=== PATIENT | male | born 1970 | race Caucasian/White ===

== ENCOUNTER 2024-07-05 08:30 | Outpatient (CLI) | payer MEDICARE, OTHER, SELFPAY | END 2024-07-05 08:31 | disposition home or self-care (01) | LOC: AMB 07-08 09:52 | PROVIDERS: PCP Surgery; Visit Provider Internal Medicine | DX: S29.9XXA Unspecified injury of thorax, initial encounter (principal); V49.50XA Passenger injured in collision with unspecified motor vehicles in traffic accident, initial encounter; Y92.410 Unspecified street and highway as the place of occurrence of the external cause | CPT/HCPCS: A0425; A0433 ==

== ENCOUNTER 2024-07-05 09:12 | Emergency (ER) | payer MEDICARE, OTHER, SELFPAY ==
--- NOTE | 2024-07-05 | CRLHL7_ITS ---
For Patients: As a result of the Century Cures Act, medical imaging exams and procedure reports are released immediately into your electronic medical record. You may view this report before your referring provider. If you have questions, please contact your health care provider. Indication: Injury Technique: CT of the lumbosacral spine was performed. Imaging was acquired in the axial plane. Contrast is not administered. Sagittal and coronal reformatted imaging was performed. Imaging was acquired from the lower thoracic region through a part of the sacrum. Comparison: None Findings: There has been anterior fusion at L4 and L5 and posterior fusion at L4, L5 and S1. Associated hardware is intact. Alignment is normal. There are moderate degenerative changes diffusely. There is no lytic or blastic lesion and there is no acute fracture, dislocation or destructive process. Impression: Postoperative changes related to fusion. Degenerative changes. No evidence of acute fracture, dislocation or destructive process. Please note that all CT scans at this facility use dose modulation, iterative reconstruction, and/or weight-based dosing when appropriate to reduce radiation dose to as low as reasonably achievable. Dictated by Anish Jolley MD @ 07/05/2024 9:56:42 AM (Electronically Signed)
[2024-07-05 09:14] VITALS: BP 175/91; PULSE 56; RESP 18; TEMP 36.2; O2SAT 93; BMI 41.6
--- NOTE | 2024-07-05 09:23 | CRLHL7_ITS ---
For Patients: As a result of the Cures Act, medical imaging exams and procedure reports are released immediately into your electronic medical record. You may view this report before your referring provider. If you have questions, please contact your health care provider. INDICATION: Injury COMPARISON: None TECHNIQUE: CT examination of the cervical spine is performed without contrast using spiral technique. Thin axial, sagittal and coronal reconstructions were made. Please note that all CT scans at this facility use dose modulation, iterative reconstruction, and/or weight-based dosing when appropriate to reduce radiation dose to as low as reasonably achievable. FINDINGS: : There is straightening which is probably due to muscle spasm or positioning. There are moderate degenerative changes diffusely. There is no acute fracture, dislocation or destructive process. There has been anterior cervical fusion at C6 and C7. There is no acute fracture, dislocation or destructive process. IMPRESSION: Straightening. Degenerative changes. Status post anterior cervical fusion. No acute fracture, dislocation or destructive process. Please note that all CT scans at this facility use dose modulation, iterative reconstruction, and/or weight-based dosing when appropriate to reduce radiation dose to as low as reasonably achievable. Dictated by Anish Jolley MD @ 07/05/2024 9:52:49 AM (Electronically Signed)
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
[2024-07-05 10:07] VITALS: PULSE 52; O2SAT 91
--- OUTSIDE RECORDS SUMMARY | 2024-07-05 10:07 | XMS_ITS | Clinical Summary ---
Author Organization [facility] Address [address] [place] [id number] Care Team Providers Care Auto Inspection Specialist Name Role Phone Addy Duffy MD Primary Care Provider [phone] Allergies No known active allergies Medications polyethylene glycoL (MIRALAX) 17 gram/dose powderIndicatio ns:Constipation , unspecified constipation type TAKE 17 GRAM MIXED WITH 8 OZ. WATER,JUICE,S VINCNEZO,COFFEE OR TEA BY ORAL ROUTE TWO TIMES A DAY . 3 jar 3 07/23/19 16 Active SUBOXONE film sublingual 0 04/13/20 18 Active NARCAN 4 mg/actuation spry 0 03/13/20 18 Active FLECTOR 1.3 % patch APPLY 1 patch to affected area NEEDED FOR acute pain 0 10/02/19 19 Active BiPapIndication s:Obstructive sleep apnea syndrome,Centra l sleep apnea comorbid with prescribed opioid use, moderate BiPAP machine for home use at pressure:16/1 2 cm/H2O, Heated humidifier x 1 every 5 years, Humidifier chamber x 1 every 6 months, Full face mask with cushion x 1 every 3 months, Full face cushion 1 every month, 1 headgear 1 every 6 month, Heated tubing x 1 every 3 months, Filters: Disposable filter x 2 a month, non-disposabl e filters x1 every 6 months; chinstrap 1 every 6 months Length of Need: 99 months, Frequency of use: Daily 1 Device 11 06/10/19 20 Active gabapentin (NEURONTIN) 300 mg capsule TAKE ONE CAPSULE BY MOUTH TWICE DAILY NEEDED for nerve pain. 08/08/19 22 Active diclofenac topical (VOLTAREN) 1 % gelIndications: Chronic right shoulder pain Apply 2 g topically to affected area(s) four times daily. 100 g 1 01/14/20 23 Active methylPREDNISol one (Medrol, Chema,) 4 mg tabletIndicatio ns:Bulging lumbar disc,Lumbar radicular pain Take by mouth as instructed per packaging. 21 Tablet 11/20/19 24 Active baclofen 20 mg tabletIndicatio ns:Lumbar radicular pain TAKE 1 TABLET BY MOUTH 2-3 TIMES DAILY NEEDED 180 Tablet 3 04/22/19 25 Active sertraline (ZOLOFT) 50 mg tabletIndicatio ns:Anxiety Take 1 Tablet (50 mg) by mouth once daily. 90 Tablet 3 06/06/19 25 Active lisinopril-hydr ochlorothiazide (10-12.5 mg) tablet (PRINZIDE; ZESTORETIC)Tabatha cations:Essenti al hypertension Take 1 Tablet by mouth once daily. 90 Tablet 3 06/06/19 25 Active sennosides-docu sate (Senexon-S) (8.6-50 mg) tabletIndicatio ns:Constipation due to pain medication TAKE TWO TABLETS BY MOUTH TWICE DAILY 360 Tablet 3 06/14/19 25 Active naproxen (NAPROSYN) 500 mg tabletIndicatio ns:Bulging lumbar disc TAKE ONE TABLET BY MOUTH TWICE A DAY WITH MEALS 180 Tablet 1 06/14/19 25 Active sennosides-docu sate (Senexon-S) (8.6-50 mg) tabletIndicatio ns:Constipation due to pain medication TAKE TWO TABLETS BY MOUTH TWICE DAILY 240 Tablet 04/01/20 24 025 Discontinued lisinopril-hydr ochlorothiazide (10-12.5 mg) tablet (PRINZIDE; ZESTORETIC)Tabatha cations:Essenti al hypertension TAKE ONE TABLET BY MOUTH ONE TIME DAILY 90 Tablet 04/02/20 24 025 Discontinued(R eorder (E-cancel not sent)) naproxen (NAPROSYN) 500 mg tabletIndicatio ns:Bulging lumbar disc TAKE ONE TABLET BY MOUTH TWICE A DAY WITH MEALS 60 Tablet 05/12/19 25 025 Discontinued doxazosin (CARDURA) 2 mg tabletIndicatio ns:Essential hypertension,In complete bladder emptying TAKE ONE TABLET BY MOUTH AT BEDTIME 30 Tablet 05/20/19 25 025 Discontinued(* Med ineffective) sertraline (ZOLOFT) 50 mg tabletIndicatio ns:Anxiety TAKE ONE TABLET BY MOUTH ONE TIME DAILY 30 Tablet 05/20/19 25 025 Discontinued(R eorder (E-cancel not sent)) Active Problems Patient Care Coordination No te Formatting of this note migh t be different from the original. Having pain weill controlled and being able to attend functions is what matters most to Pradip. Pradip would like his care team to know he has supportive significant others . What are Pradip's challenges, stressors, or barriers? Pain, coping with insurance agencies Problem Noted Date Diagnosed Date Chronic pain syndrome 06/10/2019 Anxiety disorder due to medical condition 2017 Lumbar radicular pain 09/25/2015 Bulging of L3-4 disc 08/26/2015 SHANTHI 09/17/2007 AHI-100 06/01/2015 Morbid obesity with BMI of 40.0-44.9, adult 11/17 Mixed hyperlipidemia 08/31/2011 Degeneration of lumbar or lumbosacral interverte bral disc 06/12/2008 L4-Sacrum fusion after disk injuries 06/12/2008 Unspecified essential hypertension 08/20/2007 TENDINITIS, CALCIFYING, SHOULDER Resolved Problems Problem Noted Date Diagnosed Date Resolved Date Urinary frequency 06/10/2015 03/02/2017 Obese 12/16/2011 12/16/2011 Pain medication agreement si gned and scanned 09/05/12 06/24/2011 05/30/2018 Overview (05/30/2018): Prescriber: Pain clinic - Secondary: Dr. Davide Celis, Addy Duffy Ok to fill at same amount/dose/frequency in my absence. Controlled substance agreement: 09/02/11 [employer] query on 03/01/18 was acceptable. Last UDS on 11/29/17 Backache, unspecified 01/25/20052008 SLEEP APNEA 09/17/2007 AHI-100 03/02/2017 Overview (03/02/2017): Uses CPAP Encounters Date Type Department Care Team Description 07/05/2024 Hospital Encounter [facility] [address] [place] [address] Aydee Penaloza MD 06/12/2024 Refill [facility] [address] [facility] [place] [address] Addy Duffy MD Refill Request (Naproxen) 06/12/2024 Refill [facility] [address] [place] [address] Davide Celis MD Refill Request (Senexon-s) 06/06/2024 11:55 AM INDEPENDENT FILM MAKER Office Visit [facility] [address] [place] [address] Addy Duffy MD Medicare ANNUAL (subsequent) Visit (53 yr old male) 06/06/2024 Travel 05/27/2024 Telephone [facility] [address] [facility] [address] [place] [address] Aydee Penaloza MD Appointment 05/22/2024 1:00 PM INDEPENDENT FILM MAKER Office Visit [facility] [address] [place] [address] Davide Celis MD [facility] (W/C follow up back injury DOI: 12/21/2003//) 05/22/2024 Travel 05/19/2024 Refill [facility] [address] [place] [address] Addy Duffy MD Refill Request (Doxazosin, Sertraline) 05/10/2024 Refill [facility] [address] [place] [address] Addy Duffy MD Refill Request (Naproxen) 04/18/2024 Refill [facility] [address] [place] [address] Addy Duffy MD Refill Request (Sertraline) 04/18/2024 Refill [facility] [address] [place] [address] Davide Celis MD Refill Request (Baclofen) from Last 3 Months Immunizations Immunization Administration Dates Next Due Influenza, IIV3 (Age >=3 years) 02/05/2013,12/19,12/20/2011 Influenza, IIV4 01/13/2023, 0,01/16/2017,2015 Pneumococcal Conj 20-valent (Prevnar 20) 06/06/2024 Pneumococcal Poly,23-Valent (Pneumovax) 12/20/2011 Td (Age >=7 Years) 07/28/1999 Tdap 11/04/2009 Family History Medical History Relation Name Comments Good Health Father Diabetes Mother Relation Name Status Comments Father Mother Social History Tobacco Use Types Packs/Day Years Used Date Smoking Tobacco: Former Cigarettes Q uit: 02/07/2010 Smokeless Tobacco: Former Quit: 04/17/1986 Tobacco Cessation:Counseling Given: Yes Alcohol Use Standard Drinks/Week Comments Yes 0 (1 standard drink = 0.6 oz pur e alcohol) a couple every few months PHQ-2 Answer Date Recorded PHQ-2 TOTAL SCORE 0 06/06/2024 Social Connections Answer Date Recorded Do you often feel lonely or isolated from those around you? 0 06/06/2024 Financial Resource Strain Answer Date R ecorded Difficulty of Paying Living Expenses 1 06/06/2024 Difficulty of Paying Living Expenses 2 06/06/2024 Food Insecurity Answer Date Recorded Do you worry your food will run out before you are able to buy more? 2 06/06/2024 Transportation Needs Answer Date Record ed Does lack of transportation keep you from medica l appointments? 1 06/06/2024 Does lack of transportation keep you from work, meetings or getting things that you need? 1 06/06/2024 Housing Stability Answer Date Recorded What is your housing situation today? 1 06/06/2024 Utilities Answer Date Recorded Do you have trouble paying f or utilities (for example, heat, electricity, water, phone)? 2 06/06/2024 Sex and Gender Information Value Date Recorded Sex Assigned at Not on file Legal Sex Male 6:19 AM INDEPENDENT FILM MAKER Gender Identity Not on file Sexual Orientation Not on file Obstetrics History Last Filed Vital Signs Vital Sign Reading Time Taken Comments Blood Pressure 131/83 06/06/2024 12:07 PM INDEPENDENT FILM MAKER Pulse 61 06/06/2024 12:07 PM INDEPENDENT FILM MAKER Temperature 37 C (98.6 F) 05/22/2024 1:10 PM INDEPENDENT FILM MAKER Respiratory Rate 16 05/10/2023 10:0 0 AM INDEPENDENT FILM MAKER Oxygen Saturation 96% 06/06/2024 12: 07 PM INDEPENDENT FILM MAKER Inhaled Oxygen Concentration - - Weight 148.4 kg (327 lb 3.2 oz) 025 12:07 PM INDEPENDENT FILM MAKER Height 183.5 cm (6' 0.24) 06/06/2024 1 2:07 PM INDEPENDENT FILM MAKER Body Mass Index 44.08 06/06/2024 12:07 PM INDEPENDENT FILM MAKER Plan of Treatment Upcoming Encounters Date Type Department Care Team (Late st Contact Info) Description 11/25/2024 1:00 PM CDT Office Visit [facility] [address] [place] [address] Davide Celis MD [address] [place] [address] Health Maintenance Due Date Last Done Comments Zoster (shingles) series for age 50+ (1 of 2) 2018 Tetanus booster 11/05/2019 11/04/2009, 07/28/1999 COVID-19 vaccine series ( season) 2023 Influenza Vaccine (#1) 2023 , 03/16/2020, 01/16/2017, Additional history exists BMI (ht and wt on same day) for age 18+ 06/06/2025 06/06/2024, 01/13/2023, 08/09/2021, Additional history exists Depression screening for age 12+ 06/06/2025 06/06/2024, 05/27/2024, 01/13/2023, Additional history exists Colonoscopy through age 75 09/02/2026 09/02/2021 Lipids for age 45-75 01/14/2028 01/13/2023, 08/09/2021, 01/21/2020, Additional history exists Tdap Completed 11/04/2009 HIV for age 15-65 Completed 01/13/2023 Hepatitis C screening for ag e 18-79 Completed 01/13/2023 Pneumococcal series for age 50+ Completed , 12/20/2011 Medical Devices Implanted Type Area Manager Engine Device Identifier Shelf Expiration Date Model / Serial / Lot Chips Canclls 1.0-9.5mm 30cc Aseptic Freeze Dried Strl [[id number]] [[id number]][ Implanted:Qty: 1 on 01/25/2005 at [facility] Explanted:at [facility] (Quantity not on file) Bone Implants N/A: Lumbar Vertebrae Allosource 09/16/2009 [id number] # / [id number] Description:exp 09/16/2009 Crushed Canclls [id number] ic Freeze Dried [[id number]] [[id number]][ Implanted:Qty: 1 on 01/25/2005 at [facility] Explanted:at [facility] (Quantity not on file) Bone Implants N/A: Lumbar Vertebrae Allosource 12/12/2008 [id number] # / [id number] Description:Exp-12/12/2008 Plate Cerv Ant 25mm [place] Vision 976-125 - [id number] Implanted:Qty: 1 on 01/17/2006 at [facility] Spine Implants Spine SOFAMOR DANEK 976-125# / / Screw Self Tap 4.0x14mm Fixed Ang - [id number] Implanted:Qty: 4 on 01/17/2006 at [facility] Spine Implants Spine Medtronic [id number]# / / [id number] - [id number] Implanted:Qty: 1 on 01/25/2005 at [facility] N/A: Lumbar Vertebrae SOFAMOR DANEK [id number]# / / [id number] Description:Med BMP exp 2006 Bone Precision 16x26 Fz - [id number] Implanted:Qty: 1 on 01/25/2005 at [facility] Explanted:at [facility] (Quantity not on file) N/A: Lumbar Vertebrae [employer] 12/16/2009 [id number]# / [id number] / [id number] 1 Description:Exp 12/16/2009 Bone Precision 14x26 Fz - [id number] Implanted:Qty: 1 on 01/25/2005 at [facility] Explanted:at [facility] (Quantity not on file) N/A: Lumbar Vertebrae [employer] 10/26/2009 [id number]# / [id number] / Description:Exp 10/26/2009 [id number] - [id number] Implanted:Qty: 3 on 01/25/2005 at [facility] N/A: Lumbar Vertebrae SOFAMOR DANEK [id number] # / / 0 [id number] - [id number] Implanted:Qty: 3 on 01/25/2005 at [facility] N/A: Lumbar Vertebrae SOFAMOR DANEK [id number] # / / 0 [id number]# - [id number] Implanted:Qty: 1 on 01/25/2005 at [facility] N/A: Lumbar Vertebrae SOFAMOR DANEK [id number]# / / 0 [id number]# - [id number] Implanted:Qty: 1 on 01/25/2005 at [facility] N/A: Lumbar Vertebrae SOFAMOR DANEK [id number]# / / [id number]# - [id number] Implanted:Qty: 6 on 01/25/2005 at [facility] N/A: Lumbar Vertebrae SOFAMOR DANEK [id number]# / / [id number] 77putty Dbx 1cc [id number] [[id number]] Implanted:Qty: 1 on 01/17/2006 at [facility] Explanted:at [facility] (Quantity not on file) Spine Musculoskeletal Transplant 10/08/2007 [id number]# / [id number] / [id number] [id number] Sanchez/Canclls 8mm P Lordotic Acf Fd [id number] [[id number]] Implanted:Qty: 1 on 01/17/2006 at [facility] Explanted:at [facility] (Quantity not on file) Spine Musculoskeletal Transplant 11/21/2008 [id number]# / [id number] / Procedures Procedure Name Priority Date/Time Associated Diagnosis Comments [employer] [facility] IMAGE STORAGE Routine 07/04/2024 9:43 AM CDT PSA TOTAL Routine 06/06/2024 1:14 PM INDEPENDENT FILM MAKER Screening for prostate cancer BASIC METABOLIC PANEL Routine 05/22/2024 1:55 PM INDEPENDENT FILM MAKER Therapeutic drug monitoring HEPATIC FUNCTION PANEL Routine 05/22/2024 1:55 PM INDEPENDENT FILM MAKER Therapeutic drug monitoring ANTI HIV 1/2 Routine 01/13/2023 2:11 PM CDT Screening for HIV (human immunodeficiency virus) ANTI HCV Routine 01/13/2023 2:11 PM CDT Need for hepatitis C screening test LIPID PANEL Routine 01/13/2023 2:11 PM CDT Mixed hyperlipidemia COLONOSCOPY SCREENING Routine 09/02/2021 12:00 AM CDT Screening for colon cancer from Last 3 Months or Most Recently Relevant to Health Maintenance Results * PSA TOTAL (DIAG OR SCREEN) (06/06/2024 1:14 PM INDEPENDENT FILM MAKER) [facility] PSA, TOTAL 0.42 < OR = 4.00 ng/mL [facility]ier[facility] Comment: The total PSA value from this assay system is standardized against the WHO standard. The test result will be approximately 20% lower when compared to the equimolar-standardized total PSA (Kristen Ravenel). Comparison of serial PSA results should be interpreted with this fact in mind. This test was performed using the Siemens chemiluminescent method. Values obtained from different assay methods cannot be used interchangeably. PSA levels, regardless of value, should not be interpreted as absolute evidence of the presence or absence of disease. Blood BLOOD SPECIMEN / Unknown 06/06/2024 1:14 PM INDEPENDENT FILM MAKER 06/06/2024 1:30 PM INDEPENDENT FILM MAKER Narrative [facility] - 06/07/2024 5:48 AM INDEPENDENT FILM MAKER PATIENT REFUSED SOME TESTING; PATIENT ENCOURAGED TO RETURN. us Addy Duffy MD CHEMISTRY Final Resu lt [facility]Open [facility] [address] [place] [address], [facility] [address] [place] [address] * HEPATIC FUNCTION PANEL (05/22/2024 1:55 PM INDEPENDENT FILM MAKER) Pathologist [facility] PROTEIN, TOTAL 6.9 6.1 - 8.1 g/dL [facility] ALBUMIN 4.3 3.6 - 5.1 g/dL [facility] GLOBULIN 2.6 1.9 - 3.7 g/dL (calc) [facility] ALBUMIN/GLOBULIN RATIO 1.7 1.0 - 2.5 (calc) [facility] BILIRUBIN, TOTAL 0.4 0.2 - 1.2 mg/dL [facility] BILIRUBIN, DIRECT 0.1 < OR = 0.2 mg/dL [facility] BILIRUBIN, INDIRECT 0.3 0.2 - 1.2 mg/dL (calc) [facility] ALKALINE PHOSPHATASE 61 35 - 144 U/L [facility] AST 15 10 - 35 U/L [facility] ALT 16 9 - 46 U/L [facility] Blood BLOOD SPECIMEN / Unknown 05/22/2024 1:55 PM INDEPENDENT FILM MAKER 05/22/2024 1:55 PM INDEPENDENT FILM MAKER us Davide Celis MD CHEMISTRY Final Resu lt panOpen [facility] [address] [place] [address], [facility] [address] [place] [address] * (ABNORMAL) BASIC METABOLIC PANEL (05/22/2024 1:55 PM INDEPENDENT FILM MAKER) [facility] GLUCOSE 93 65 - 99 mg/dL [facility] Comment: Fasting reference interval UREA NITROGEN (BUN) 20 7 - 25 mg/dL [facility] CREATININE 0.75 0.70 - 1.30 mg/dL [facility] EGFR 107 > OR = 60 mL/min/1. 73m2 [facility] BUN/CREATININE RATIO SEE NOTE: 6 (calc) [facility] Comment: Not Reported: BUN and Creatinine are within reference range. SODIUM 140 135 - 146 mmol/L [facility] POTASSIUM 4.5 3.5 - 5.3 mmol/L [facility] CHLORIDE 103 98 - 110 mmol/L [facility] CARBON DIOXIDE 32 20 - 32 mmol/L [facility] ELECTROLYTE BALANCE 5(L) 7 - 17 mmol/L (calc) [facility] CALCIUM 9.3 8.6 - 10.3 mg/dL [facility] Blood BLOOD SPECIMEN / Unknown 05/22/2024 1:55 PM INDEPENDENT FILM MAKER 05/22/2024 1:55 PM INDEPENDENT FILM MAKER us Davide Celis MD CHEMISTRY Final Resu lt Performing Organization Address [facility]/ZIP Co de Phone Number [facility]Open [facility] [address] [place] [address], [facility] [address] [place] [address] * ANTI HCV (01/13/2023 2:11 PM CDT) HEPATITIS C ANTIBODY Non-Reacti ve Non-React miranda 01/13/2023 9:37 PM CDT [facility] Comment:Please note, per www .CDC.gov: If a patient is known to be at high risk of HCV infection, or is symptomatic, and the physician's suspicion of HCV infection is high, HCV RNA testing is often employed and is of diagnostic value, even after an initial negative anti-HCV test result. Blood BLOOD SPECIMEN / Unknown Venipuncture / Unknown 01/13/2023 2:11 PM CDT 01/13/2023 2:11 PM CDT us Addy Duffy MD SEND OUTS Final Resu lt Performing Organization Address [facility]/ZIP Co de Phone Number [facility] [address] [place] [address], [place] * ANTI HIV 1/2 [33956.0] (01/13/2023 2:11 PM CDT) HIV-1/HIV-2 SCREEN Non-Reacti ve Non-Reacti ve 01/13/2023 9:30 PM CDT [facility] Comment:HIV-1 p24 and HIV-1/ HIV-2 Ab Not Detected. Blood BLOOD SPECIMEN / Unknown Venipuncture / Unknown 01/13/2023 2:11 PM CDT 01/13/2023 2:11 PM CDT us Addy Duffy MD SEND OUTS Final Resu lt [facility] [address] [place] [address], * LIPID PANEL (01/13/2023 2:11 PM CDT) CHOLESTEROL,TOTAL 173 100 - 199 mg/dL 01/13/2023 9:42 PM CDT [facility] Comment: Cholesterol, Total Reference Ranges Desirable <200 mg/dL Borderline 200-239 mg/dL High >=240 mg/dL TRIGLYCERIDES 108 <150 mg/dL 01/13/2023 9:42 PM CDT [facility] HDL CHOLESTEROL 60 >40 mg/dL 9:42 PM CDT [facility] NON-HDL CHOLESTEROL 113 <145 mg/dl 01/13/2023 9:42 PM CDT [facility] CHOL/HDL RATIO 2.88 <4.50 01/13/2023 9:42 PM CDT [facility] LDL CHOLESTEROL 91 <=130 mg/dL 01/13/2023 9:42 PM CDT [facility] VLDL CHOLESTEROL 22 <=30 mg/dL 01/13/2023 9:42 PM CDT [facility] PROVIDER ORDERED STATUS RANDOM 01/13/2023 9:42 PM CDT [facility] Blood BLOOD SPECIMEN / Unknown Venipuncture / Unknown 01/13/2023 2:11 PM CDT 01/13/2023 2:11 PM CDT Addy Duffy MD CHEMISTRY Final Resu lt [facility] [address] [place] [address], * COLONOSCOPY SCREENING [[id number]] (09/02/2021 12:00 AM CDT) Addy Duffy MD GI PROCEDURE ORD Final Res ult from Last 3 Months or Most Recently Relevant to Health [place] [address] MEDICARE PB ONLY [place] [id number] MEDICARE [place] ONLY [place] [id number] [place] [id number] [place] Advance Directives Documents on File Type Date Recorded Patient Transit Specialist Expl anation Healthcare Directive 02/01/2005 * Full Code (Latest Code Status on File) Date Activated Date Inactivated Comments 01/17/2006 6:26 PM 01/18/2006 8:29 PM * Full Code Date Activated Date Inactivated Comments 01/17/2006 11:53 AM 01/17/2006 6:26 PM * Full Code Date Activated Date Inactivated Comments 01/25/2005 9:01 PM 01/30/2005 7:53 PM * Full Code Date Activated Date Inactivated Comments 01/25/2005 8:20 AM 01/25/2005 9:01 PM Care Teams Auto Inspection Specialist Relationship Specialty Start Date End Date Addy Duffy MD [address] [facility] [facility] [address] PCP - General Family Practice 04/04/14
--- OUTSIDE RECORDS SUMMARY | 2024-07-05 10:07 | XMS_ITS | Continuity of Care Document ---
Author Organization [facility] Address [address] [place] [address] [address] [place] [address] Phone Care Team Providers Care Customer Engagement Representative Name Role Phone Edna CIFUENTES, Amijoshua Unavailable Unavailable Medications Medication Instructions Dosage Effective Dates (start - stop) Status Comments Vistaril 25 mg Cap 1-2 tabs q 6 hours prn 006 - Active Valium 2 mg Tab 1 po q 8 hours prn - A ctive Percocet 5 mg-325 mg Tab 1-2 po q 6 hours prn - Active Procedures Procedure Date Office/outpatient visit,est, low 2008 Office/outpatient visit,est, low 2008 Special serv [facility], procedor report Office/outpatient visit,est, mod 2007 X-ray exam lower spine 2-3 views 2007 Special serv NEC, procedor report Office/outpatient visit,est, low 2007 Special serv NEC, procedor report Office/outpatient visit,est, low 2007 X-ray exam lower spine 2-3 views 2007 Special serv NEC, procedor report Office/outpatient visit,est, low 2006 X-ray exam of neck spine2-3 views X-ray exam lower spine 2-3 views 2006 Remove Cerv spine disk, single 06 Neck spine fusion (cerv,below C2) Insert spine fix dev, ant, 2-3 seg Apply spinal prosthetic device Office/outpatient visit,est, low 2005 Office/outpatient visit,est, low 2005 Special serv NEC, procedor report Office/outpatient visit,est, low 2005 X-ray exam lower spine 2-3 views 2005 Special serv NEC, procedor report Advance Directives Directive Yes / No Effective Date File Name No Information Encounters Encounter Description Practice Location Reason(s) For Visit Diagnoses Date Provider Providers Copied on Encounter Office/outpat ient visit,est, low [facility], [address] [place], [place] [address], [place], [address], [place] tel:[phone] [employer] [place] No Information 9 Mehbod Amir. [facility] [place], [address], [place], [place], [id number] , [place]. tel:[phone] Referring Provider: [facility] [address], [place], [address]. tel:[phone] Office/outpat ient visit,est, low [facility], [address] [place], [place] [address]ite [facility], [place], [address], [place] tel:[phone] [employer] [place] No Information 9 Mehbod Amir. [facility] [place], [address], [place], [place], [id number] , [place]. tel:[phone] Referring Provider: Simone Meadows [facility] [address] , [place], [address]. tel:[phone] Office/outpat ient visit,est, mod [facility], [address] [place], [place] [address]Suite [facility], [place], [address], [place] tel:[phone] [employer] [place] No Information 8 Mehbod Amir. [facility] [place], [address], [place], [place], [id number] , [place]. tel:[phone] Referring Provider: [employer] [facility] [address], [place], [address]. tel:[phone] Office/outpat ient visit,est, low [facility], [address], [place], [address], [place] tel:[phone] [facility] [place] No Information 5-200 8 Mehbod Amir. [facility], [address], [place], [place], [id number] , [place]. tel:[phone] Referring Provider: Davide Galvin, [facility], [place], [address]. tel:[phone] Office/outpat ient visit,est, low [facility], [address], [place], [place], [facility], [place] tel:[phone] [facility] [place] No Information 1-200 8 Mehbod Amir. [facility] [place], [address], [place], [place], [id number] , [place]. tel:[phone] Referring Provider: Davide Galvin, [facility], [place], [address]. tel:[phone] Office/outpat ient visit,est, low [facility], [address], [place], [address], [place] tel:[phone] [facility] [place] No Information 2200 7 Mehbod Amir. [facility], [address], [place], [place], [address] , [place]. tel:[phone] Referring Provider: Davide Galvin, [facility], [place], [address]. tel:[phone] [facility], [address], [place], [address], [place] tel:[phone] [facility] No Information 7-200 6 Mehbod Amir. [facility] [place], [address], [place], [place], [address] , [place]. tel:[phone] Referring Provider: Davide Galvin, [facility] [address], [place], [address]. tel:[phone] Office/outpat ient visit,est, low [facility], [address] [place], [place] [address]ite [facility], [place], [address], [place] tel:[phone] [facility] - [place] No Information Sep-1 5-200 6 Mehbod Amir. [facility], [address], [place], [place], [id number] , [place]. tel:[phone] Referring Provider: Davide Galvin, [facility] [address] , [place], [address]. tel:[phone] Office/outpat ient visit,est, low [facility] [place], [address] [place], [place] [address] [place] [address], [address], [place] tel:[phone] [email or web address] No Information Esdras-0 5-200 6 Mehbod Amir. [facility] [place], [address], [place], [place], [address] , [place]. tel:[phone] Referring Provider: Davide Galvin, [facility], [place], [address]. tel:[phone] Office/outpat ient visit,est, low [facility] [place], [address] [place], [place] [address] [facility], [place], [place], [facility], [place] tel:[phone] [email or web address] No Information Feb-2 0-200 6 Mehbod Amir. [facility] [place], [address], [place], [place], [address] , [place]. [phone] Referring Provider: Davide Galvin, [facility], [place], [address]. tel:[phone] Family History Family Member Type Diagnosis Age At Onset No Information Payers Payer name Insurance type Covered constitution party ID Reymundo cervantes(snehal) [employer] [id number] Social History Type Description Quantity Date Captured Comments Sex Male Smoking Status No Information Chief Complaint And Reason For Visit No Information Reason For Referral Reason For Referral No Information History Of Present Illness Encounter Date Complaint History Of Prese nt Illness No Information Functional Status Date Functional Assessmen t No Information Instructions Date Instruction Additional Infor mation No Information Assessments Type Assessment Date No Information Patient Care Teams Name Effective Dates (start - stop) Status Members No Information
[2024-07-05 10:15] VITALS: PULSE 56; O2SAT 94
[2024-07-05 10:30] VITALS: PULSE 62; O2SAT 94
== END 2024-07-05 10:51 | disposition home or self-care (01) ==
PROVIDERS: Emergency Provider Internal Medicine; PCP Surgery
DX: M54.50 Low back pain, unspecified (principal); R07.89 Other chest pain
CPT/HCPCS: 71250; 72125; 72131; 99283